=== PATIENT | male | born 1970 | race Caucasian/White ===

== ENCOUNTER 2020-12-12 07:22 | Day surgery (SDC) | payer OTHER ==
[2020-12-12] MEDS: Lactated Ringers 1,000 ML IV SCH (07:44)
[2020-12-12] MEDS ORDERED: fentaNYL 100 MCG/2 ML SDV ONE (08:17)
[2020-12-12] MEDS ORDERED: Propofol 200 MG/20 ML SDV ONE ×3 (08:17→08:47)
--- NOTE | 2020-12-12 12:44 | OR ---
DATE OF SURGERY: 12/12/2020. REFERRING PROVIDER: Nisha Mcmillan DO PRE-OPERATIVE DIAGNOSES: Positive FIT stool card, colon cancer screening. This is the patient's first colonoscopy. POST-OPERATIVE DIAGNOSES: 1. A total of 5 polyps removed. a. 2 mm polyp at 80 cm, removed with cold forceps. b. 4 mm polyp at 45 cm, removed with cold forceps. c. 5 mm polyp at 40 cm, removed with hot snare. d. 3 mm polyp at 35 cm, removed with cold forceps. e. 6 mm polyp at 30 cm, removed with hot snare. 2. Normal-appearing distal ileum with prominent lymphoid tissue. PROCEDURE: Colonoscopy with polypectomy x5 (2 hot snares and 3 using cold forceps). SURGEON: Valdemar Posada M.D. ANESTHESIA: Monitored anesthesia care. BOWEL PREP: Fair. Did require a moderate amount of suctioning and irrigation. Huber is a 50-year-old male who was brought to the endoscopy suite after discussing risks and benefits of the procedure. Informed consent was obtained for conscious sedation and colonoscopy with or without biopsy and/or polypectomy. We also discussed possibility of missed lesions. Pre-procedure exam was unremarkable. IV, oxygen, and monitors were placed. The patient was placed in the left lateral decubitus position. Sedation was administered and a digital rectal exam was performed and unremarkable. Colonoscope was passed into the rectum and slowly advanced all the way to the cecum. Cecum was viewed and photographed. Ileocecal valve was intubated and distal ileum was normal in appearance, but did have some prominent lymphoid tissue throughout. The colonoscope was slowly withdrawn and the mucosa was closed observed in a direct circumferential manner. The ascending colon was unremarkable except for 2 mm polyp at 80 cm. The transverse colon was unremarkable. The descending and sigmoid colon revealed multiple polyps as noted above. Retroflexion was performed and rectal mucosa was unremarkable. Scope was removed. The patient tolerated the procedure well. The patient was monitored until that baseline status. Discharge instructions were reviewed and the patient was discharged in good condition. COMPLICATIONS: None. TOTAL TIME: 39 minutes. ESTIMATED BLOOD LOSS: About 1 mL. RECOMMENDATIONS/FOLLOW-UP: We will await results of path report to determine ideal followup interval. I would like to kindly thank Nisha Mcmillan for this referral. DMB: 12/12/2020 09:53:09 MODL: 12/12/2020 10:21:46 /[id number]
--- NOTE | 2020-12-12 12:49 | OR ---
SURGERY DATE: 12/12/2020. REFERRING PROVIDER: Nisha Mcmillan DO PRE-OPERATIVE DIAGNOSIS: Chronic gastroesophageal reflux disease for about the past 9 months. The patient denies any dysphagia. He had previously been on omeprazole, but has not been lately. POST-OPERATIVE DIAGNOSES: 1. Some minimal antritis/gastritis present. Antral biopsy x2 bites taken for path and Helicobacter pylori. 2. Couple of small gastric fundic type polyps noted within the fundus. Cold biopsy x2 bites taken. PROCEDURE: Esophagogastroduodenoscopy with cold biopsy x2 sites as noted above. SURGEON: Valdemar Posada M.D. ANESTHESIA: Monitored anesthesia care. Huber is a 50-year-old male who was brought to the endoscope suite after discussion of risks and benefits (including but not limited to reaction to medication, bleeding, infection, aspiration, perforation). Informed consent was obtained for monitored anesthesia care and esophagogastroduodenoscopy along with possible biopsy and/or dilatation. Pre-procedure exam including oral cavity was unremarkable. IV, oxygen, and monitors were placed. Patient was placed in the left lateral position and sedation was administered. A bite block was placed gently and scope lightly lubricated and passed through the bite block and over the tongue. Hypopharynx and vocal cords were visualized and unremarkable. Scope was passed through the cricopharynx and into the esophagus. The scope was then passed through the distal esophagus and the GE junction was visualized and photographed. The GE junction was unremarkable. Vocal cords were visualized and unremarkable. The scope was advanced into the stomach and gastric mukherjee was suctioned. Pylorus was identified and intubated and then the scope was advanced to the third portion of the duodenum. The second and third portions of the duodenum were unremarkable. The duodenal bulb was visualized and unremarkable. The scope was brought back into the stomach. The pylorus and the antrum revealed some minimal antritis. Cold biopsy x2 bites was taken from this area to check for H. pylori and sent for path. The scope was retroflexed to visualize the angularis, fundus, body, and cardia. These were remarkable for couple of small fundic type polyps. Two of these were biopsied/removed using cold forceps. These were 4 mm or less in size. The stomach was desufflated of air and then the scope was slowly withdrawn, and the esophagus was closely visualized during withdrawal all the way into the posterior pharynx and was unremarkable. The patient tolerated the procedure well and went to recovery in stable condition. The patient was monitored until at baseline status. Findings and discharge instructions were reviewed and the patient was discharged in good condition. COMPLICATIONS: None. TOTAL TIME: 7 minutes. ESTIMATED BLOOD LOSS: About 1 mL. RECOMMENDATIONS/FOLLOW-UP: We will await results of path report and send a letter with results. I did recommend the patient to continue on his omeprazole 20 mg daily or can use H2 jerri like Pepcid 20 mg daily if symptoms are very mild. I would like to kindly thank Nisha Mcmillan for this referral. DMB: 12/12/2020 09:49:58 MODL: 12/12/2020 10:10:38 /[id number]
== END 2020-12-12 10:25 | disposition home or self-care (01) ==
LOC: VM.SDS 07:22
PROVIDERS: ATTEND Family Medicine
DX: D12.5 Benign neoplasm of sigmoid colon (principal); D12.4 Benign neoplasm of descending colon; K29.50 Unspecified chronic gastritis without bleeding; K31.7 Polyp of stomach and duodenum; K21.9 Gastro-esophageal reflux disease without esophagitis; E11.9 Type 2 diabetes mellitus without complications; I10 Essential (primary) hypertension; E78.5 Hyperlipidemia, unspecified; E66.9 Obesity, unspecified; M10.9 Gout, unspecified; Z01.812 Encounter for preprocedural laboratory examination; Z20.822 Contact with and (suspected) exposure to COVID-19; Z79.899 Other long term (current) drug therapy; Z79.84 Long term (current) use of oral hypoglycemic drugs; Z88.8 Allergy status to other drugs, medicaments and biological substances; Z68.36 Body mass index [BMI] 36.0-36.9, adult
CPT/HCPCS: 00813; 82962; J2704; J3010; J7120; U0002

== ENCOUNTER 2024-05-04 06:56 | Day surgery (SDC) | payer OTHER ==
[~2024-05-04 06:56] MED LIST: Lactated Ringers 1,000 ML IV SCH
[2024-05-04] MEDS: Lactated Ringers 1,000 ML IV SCH (07:13)
[2024-05-04] MEDS ORDERED: fentaNYL 100 MCG/2 ML SDV ONE (08:03)
[2024-05-04] MEDS ORDERED: Propofol 200 MG/20 ML SDV ONE (08:03)
[2024-05-04] MEDS ORDERED: Midazolam 1 MG/ML 2 ML SDV ONE (08:03)
== END 2024-05-04 09:30 | disposition home or self-care (01) ==
LOC: VM.SDS 06:56
PROVIDERS: ATTEND Family Medicine
DX: Z12.11 Encounter for screening for malignant neoplasm of colon (principal); D12.0 Benign neoplasm of cecum; I10 Essential (primary) hypertension; E11.9 Type 2 diabetes mellitus without complications; E78.5 Hyperlipidemia, unspecified; E66.9 Obesity, unspecified; Z79.84 Long term (current) use of oral hypoglycemic drugs; Z79.4 Long term (current) use of insulin; Z79.899 Other long term (current) drug therapy
CPT/HCPCS: 00811; 82947; J2250; J2704; J3010; J7120